=== PATIENT | female | born 1975 | race American Indian/Alaskan Native ===

== ENCOUNTER 2018-11-20 11:57 | Observation (INO) | payer BC ==
--- NOTE | 2018-11-20 12:05 | History and Physical Report ---
History of Present Illness Date of examination: 11/20/18 Date of admission: 11/20/18 11:57 Chief complaint: vaginal bleeding History of present illness: Pt presents with 2 weeks h/o vaginal bleeding and pelvic pain. When seen in the office upt was positive and pt reported positive upt at home an in pcp office as well. When seen in office on 11/16/17 quant was 456 and sono showed an adnexal cyst but no IUP as to be expected at this quant. However, repeat quat 48 hours later was 421. I d/w that this was not normal and that ectopic can not be ruled out but it is an abnormal . She was given the option of treatment via MTX vs observation. Pt desires to have medical management at this time. All risk, benefits and alternatives were d/w pt and questions were addressed and answered. Past History : 2 Term Births: 2 Living Children: 2 Para: 2 [employer]ODUCTION DES[employer] History Uterine Surgery (not C/S): negative Operations: negative Hospitalizations: negative Anesthesia Complications: negative Abnormal PAP: negative Uterine Anomaly: negative PHUONG Exposure: negative Infertility: negative Infection History HIV Risk Eval: no Personal hx. of genital herpes: yes Hx of STD: chlamydia, RPR Active Medications (reviewed today): None Current Allergies (reviewed today): * CODEINE (Critical) Past Medical History: Reviewed history from 10/31/2012 and no changes required: Thyroid dz ([facility]) Past Surgical History: Reviewed history from 10/25/2011 and no changes required: negative Risk Factors: Smoked Tobacco Use: Never smoker Smokeless Tobacco Use: Never Passive smoke exposure: no Drug use: no HIV high-risk behavior: no Caffeine use: 0 drinks per day Alcohol use: yes Type: social Seatbelt use: 100 % PAP Smear History: Date of Last PAP Smear: 03/16/2018 Past History Past Medical History: thyroid disease Past Surgical History: no surgical history Social history: no significant social history, Review of Systems ROS unobtainable: due to endotracheal tube - Physical Exam Cardiovascular: Normal S1, Normal S2 Lungs: Positive: Clear to auscultation, Normal air movement Abdomen: Positive: normal appearance Genitourinary (Female): Positive: normal external genitalia, normal perenium Vagina: Positive: normal moisture Deep Tendon Reflex Grade: Normal +2 Results All other labs normal. Assessment and Plan - Patient Problems (1) Abnormal in first trimester Current Visit: Yes Status: Acute Plan to address problem: -admit -MTX -d/c home when medication completed.
[2018-11-20] MEDS ORDERED: IBUPROFEN PO PRN (12:22)
[2018-11-20] MEDS ORDERED: ZOFRAN IV PRN (12:22)
[2018-11-20 15:21] LABS: Basophils % (Auto) 0.8 % (0.0-1.8); Eosinophils # (Auto) 0.1 K/mm3 (0.0-0.4); Eosinophils % (Auto) 1.3 % (0.0-4.3); Hematocrit 35.3 % (30.3-42.9); Lymphocytes # (Auto) 2.2 K/mm3 (1.2-5.4); Lymphocytes % (Auto) 44.2 % (13.4-35.0); Mean Corpuscular HGB Conc 34 % (30-34); Mean Corpuscular Volume 93 fl (79-97); Monocytes # (Auto) 0.6 K/mm3 (0.0-0.8); Monocytes % (Auto) 11.7 % (0.0-7.3); Platelet Count 262 K/mm3 (140-440); Red Blood Count 3.81 M/mm3 (3.65-5.03); Red Cell Distribution Width 13.8 % (13.2-15.2)
[2018-11-20 15:48] LABS: Alanine Aminotransferase 13 units/L (7-56); Albumin 4.5 g/dL (3.9-5); BUN/Creatinine Ratio 18; Blood Urea Nitrogen 14 mg/dL (7-17); Calcium 9.1 mg/dL (8.4-10.2); Hemolysis Index 21
--- NOTE | 2018-11-20 17:04 | Short Stay Summary ---
Short Stay Documentation - History Social history: no significant social history, - Allergies and Medications Current Medications: Allergies No Known Allergies Allergy (Unverified 11/20/18 12:41) Active Medications Ondansetron HCl (Zofran) 4 mg IV Q8H PRN PRN Reason: Nausea And Vomiting - Discharge Diagnoses (1) Abnormal in first trimester Status: Acute Short Stay Discharge Plan Follow up with: SHANIA MARIE MD [Primary Care Provider] - 7 Days LANETTE STILL MD [Staff Physician] - 3 Days (Follow up Monday for blood work)
[2018-11-20 21:13] VITALS: BP 138/85
== END 2018-11-20 19:50 | disposition home or self-care (01) ==
LOC: 3A 11:57 → UNDOADMOB 11:57 → OB 14:39
PROVIDERS: ADMIT Obstetrics & Gynecology; ATTEND Obstetrics & Gynecology
DX: O46.91 Antepartum hemorrhage, unspecified, first trimester (principal); Z3A.00 Weeks of gestation of pregnancy not specified
CPT/HCPCS: 36415; 80053; 85025; 86900; 86901; 96372; G0378; G0379; J9260